=== PATIENT | female | born 1960 | race Caucasian/White ===

== ENCOUNTER 2017-10-20 00:29 | Emergency (ER) | payer OTHER, SELFPAY ==
[2017-10-20 00:31] VITALS: BP 136/87; PULSE 102; RESP 13; TEMP 36.7; O2SAT 95; BMI 42.9
[2017-10-20 00:42] VITALS: PULSE 91; RESP 12; O2SAT 95
[2017-10-20 00:43] LABS: Absolute Lymphocyte Count 3.89 X10^3/ul (0.83-4.51); Absolute Neutrophil Count 4.5 X10^3/uL (2.0-7.7); Basophil# 0.04 X10^3/uL; Basophil% 0.4 % (0-1); Eosinophil# 0.25 X10^3/uL; Eosinophils% 2.5 % (0-5); Hematocrit 39.8 % (37-47); Hemoglobin 13.2 g/dl (12.0-15.0); Lymphocyte # 3.89 X10^3/ul (4.0); Lymphocyte % 38.2 % (19-41); Mean Corp Hgb Conc 33.2 g/gl (32-36); Mean Corpuscular Hgb 28.1 pg (27.0-32.0); Mean Corpuscular Volume 84.9 fL (81-99); Mean Platelet Vol. 11.5 fl (6.2-12.0); Monocyte# 1.46 X10^3/uL; Monocyte% 14.3 % (0-10); Neutrophil # 4.52 X10^3/uL (2.7-7.7); Neutrophil % 44.3 % (47-70); Platelet Count 257 K/mm3 (150-450); RBC Distribution Width CV 14.4 % (11.6-14.6); RBC Distribution Width SD 43.8 fl (35.1-43.9); Red Blood Count 4.69 M/mm3 (4.2-5.4); White Blood Count 10.2 K/mm3 (4.4-11.0)
[2017-10-20] MEDS: predniSONE 20 MG Tablet 60 MG PO (00:46)
[2017-10-20] MEDS: DiphenhydrAMINE 50 MG/ML Syringe 25 MG IV (00:46)
--- NOTE | 2017-10-20 00:51 | ED.DCSUM_ITS ---
- ER Visit Summary Date of Service: 10/20/17 Chief Complaint: Allergic reaction History of Present Illness: The patient is a 57 F presenting for evaluation due to concern for an allergic reaction. Patient states she woke up today and had a sudden onset of feeling of swelling in her face and lips as well as generalized burning in her body. Patient states that she has never had any prior similar episodes in the past. She denies any new exposures such as soaps , foods, clothes, detergents, bedding, or medications. She has not on any sort of CORBY inhibitors. Patient states that she made [employer] for dinner, but did not have any sort of recent travel or new food exposures. Physical Examination: Vital signs are within normal limits, patient is afebrile. General: Patient is well-nourished well-developed and in no acute distress. Head: Normocephalic, atraumatic Eyes: Pupils equal round and reactive bilaterally, extra occular motion intact bialterally, there is evidence of periorbital swelling ENT: Moist mucous membranes, no evidence of tongue swelling, sublingual edema, or lip swelling Neck: Supple, no lymphadenopathy, no JVD, no meningismus CVS: Heart regular rate and rhythm, no murmurs, rubs or gallops, radial pulses 2 + bilaterally Resp: Respirations nondistressed, lung sounds clear bilaterally Abdomen: Soft, nontender, nondistended, no palpable masses, normal bowel sounds Back: Nontender Extremities: Nontender, atraumatic, active full range of motion, no peripheral edema Skin: warm, mild amount of erythema noted on the patient's arms and face Neuro: Alert and oriented x 4, CN 2-12 intact, no lateralizing neurological defecits Psyc: Normal affect Test Results: CBC and chemistry unremarkable Emergency Department Course and Treatment: Patient presented with an allergic reaction. This does not appear to be anaphylaxis. Patient was given prednisone and Benadryl and Pepcid. Repeat evaluation at 0200 showed significant improvement in the patient's facial swelling and symptoms. This point I believe the patient can safely be discharged. She will be sent home with a course of prednisone. I do not believe that there is indication for an epinephrine pen at this point. Patient will follow up with her primary care physician. Disposition: Discharge Impression: 1. Allergic reaction This note was generated with Dragon dictation software. It may contain incorrect words, spelling, and punctuation that were not noted in review of the chart prior to signing ED Disposition - Plan for ED Patient: Chief Complaint: Allergic Reaction Diagnosis: Allergic reaction Instructions: ED Allergic Reaction General Other Prescriptions: Prednisone 60 mg PO DAILY #12 tab Referrals: Radha Lange MD [Primary Care Provider] - 3-5 Days
[2017-10-20 00:56] LABS: Anion Gap 9 (5-15); BUN 23 mg/dL (7-18); BUN/Creat Ratio 23.7 RATIO (10-20); Calcium,Total 9.2 mg/dL (8.5-10.1); Chloride 103 mmol/L (98-107); Creatinine, Serum 0.97 mg/dL (0.55-1.02); EST Glomerular Filtration Rate 63 mL/min (>60); Est Glom Filt Rate - Afr Amer 76 mL/min (>60); Estimated Creatinine Clearance 50.61 ml/min; Glucose 122 mg/dL (74-106); Potassium 3.3 mmol/L (3.5-5.1); Sodium Level 139 mmol/L (136-145)
[2017-10-20 01:18] LABS: POSITIVE COUNT NO; POSITIVE DIFFERENTIAL NO; POSITIVE MORPHOLOGY NO
[2017-10-20 02:13] VITALS: BP 143/80; PULSE 78; RESP 16; O2SAT 95
== END 2017-10-20 02:16 | disposition home or self-care (01) ==
LOC: ED 00:51
PROVIDERS: Emergency Provider Emergency Medicine; Family Provider Internal Medicine; PCP Internal Medicine
DX: T78.40XA Allergy, unspecified, initial encounter (principal); X58.XXXA Exposure to other specified factors, initial encounter; I10 Essential (primary) hypertension; Z79.899 Other long term (current) drug therapy
CPT/HCPCS: 80048; 85025; 96365; 96375; 99283; J7050; A4216; J3490

== ENCOUNTER 2020-09-03 15:25 | Outpatient (RCR) | payer OTHER, SELFPAY ==
[2020-09-24] MEDS: COVID-19 VACC, MRNA(PFIZER)/PF 30 MCG/0.3 ML SYRINGE IM (09:05)
== END 2020-11-26 23:59 ==
LOC: IMMUN 15:25
PROVIDERS: PCP Internal Medicine; Visit Provider Family Medicine
DX: Z23 Encounter for immunization (principal)
CPT/HCPCS: 0002A; 91300